=== PATIENT | male | born 1965 | race Caucasian/White ===

== ENCOUNTER 2016-11-18 07:59 | Day surgery (SDC) | payer BC, OTHER ==
[2016-11-13 14:40] VITALS: BMI 29.0
[~2016-11-18 07:59] MED LIST: LACTATED RINGERS 1,000 ML IV SCH
[2016-11-18 08:20] VITALS: TEMP 97.6
[2016-11-18] MEDS ORDERED: LIDOCAINE 1% 20 ML VIAL (10MG/ML) FOR IV START INTRADERMA ONE (08:20)
[2016-11-18] MEDS ORDERED: PROPOFOL 10 MG/ML 20 ML VIAL IV ONE (08:44)
[2016-11-18] MEDS ORDERED: GLYCOPYRROLATE 0.2 MG/ML 2 ML VIAL ONE (08:44)
[2016-11-18] MEDS ORDERED: LIDOCAINE 1% INJ 10MG/ML (20 ML MDV) ONE (08:44)
--- NOTE | 2016-11-18 08:53 | P.GSHP ---
History of Present Illness H&P Date: 11/18/16 Chief Complaint: History of colonic polyps This 51-year-old male who is referred from Dr. taveras. Patient rents today for colonoscopy. He is at a previous history of colon polyps. His last colonoscopy was 3 or 4 years ago. - Constitutional Constitutional: Reports as per HPI Past Medical History Past Medical History: GERD/Reflux, Hyperlipidemia, Prostate Disorder Additional Past Medical History / Comment(s): hx polyps History of Any Multi-Drug Resistant Organisms: None Reported Past Surgical History: Orthopedic Surgery Additional Past Surgical History / Comment(s): RT ELBOW, ARM, FELL OUT OF A DEER STAND 2012 Past Anesthesia/Blood Transfusion Reactions: Previous Problems w/ Anesthesia Additional Past Anesthesia/Blood Transfusion Reaction / Comment(s): HAD BEHAVIOR CHANGE POST ARM SX "SWEARING AND MAD" Past Psychological History: No Psychological Hx Reported Smoking Status: Current every day smoker Past Alcohol Use History: None Reported Additional Past Alcohol Use History / Comment(s): SMOKES 1/4-1/2 PPD SINCE 1981 Past Drug Use History: None Reported - Past Family History Mother Family Medical History: No Reported History Medications and Allergies Home Medications Medication Instructions Recorded Confirmed Type Ergocalciferol [Vitamin D2 50,000 unit PO Q7D 08/03/14 11/18/16 History (YFN)] Fenofibrate [Tricor] 160 mg PO HS 08/03/14 11/18/16 History Fish Oil/Dha/Epa [Fish Oil 1,200 1 each PO HS 08/03/14 11/18/16 History mg Fish Oil] Ranitidine HCl [Zantac] 300 mg PO HS 08/03/14 11/18/16 History Simvastatin [Zocor] 20 mg PO HS 08/03/14 11/18/16 History Acetaminophen [Tylenol Arthritis] 650 mg PO Q4H PRN 11/13/16 11/18/16 History Finasteride [Proscar] 5 mg PO DAILY 11/13/16 11/18/16 History Allergies Allergy/AdvReac Type Severity Reaction Status Date / Time No Known Allergies Allergy Verified 11/18/16 08:11 Surgical - Exam Vital Signs Temp Pulse Resp BP Pulse Ox 97.6 F 58 L 18 131/79 95 11/18/16 08:18 11/18/16 08:18 11/18/16 08:18 11/18/16 08:18 11/18/16 08:18 - General well developed, no distress - Eyes PERRL - ENT normal pinna - Neck no masses - Respiratory normal expansion - Cardiovascular Rhythm: regular - Abdomen Abdomen: soft Assessment and Plan Plan: We'll perform colonoscopy.
--- NOTE | 2016-11-18 09:03 | P.OP ---
Date of Procedure: 11/18/16 Preoperative Diagnosis: History of colon polyps Postoperative Diagnosis: Mild diverticulosis Procedure(s) Performed: Colonoscopy Anesthesia: MAC Surgeon: Almas Hendricks Pathology: none sent Condition: stable Disposition: PACU Description of Procedure: The patient's placed on the endoscopy table in the lateral position. He received IV sedation. Digital rectal exam was performed which revealed no abnormalities. The prostate was symmetric without nodules. The flexible colonoscope was then placed throughout the entire colon. The ileocecal valve was visualized. The cecum, ascending and transverse colon appeared normal. In the descending; there was a few scattered diverticula. Scope was then brought back the rectum and this appeared normal. Scope was withdrawn for patient.
[2016-11-18 09:34] VITALS: BP 123/78; PULSE 58; RESP 16
== END 2016-11-18 09:52 | disposition home or self-care (01) ==
LOC: ORWHC2ENDO 07:59
PROVIDERS: ATTEND Surgery
DX: Z12.11 Encounter for screening for malignant neoplasm of colon (principal); Z86.010 Personal history of colon polyps; K57.30 Diverticulosis of large intestine without perforation or abscess without bleeding; E78.5 Hyperlipidemia, unspecified; F17.200 Nicotine dependence, unspecified, uncomplicated; N40.0 Benign prostatic hyperplasia without lower urinary tract symptoms; K21.9 Gastro-esophageal reflux disease without esophagitis; Z79.899 Other long term (current) drug therapy
CPT/HCPCS: J2001; J2704; G0105; 45378

== ENCOUNTER → 2021-03-06 | Outpatient (CLI) | payer BC, OTHER ==
[2021-03-06 12:18] LABS: African American GFR (CKD) >90 (>60 ml/min/1.73 sqM); Blood Urea Nitrogen 15 mg/dL (9-20); Non-African American GFR(CKD) 87 (>60 ml/min/1.73 sqM)
--- NOTE | 2021-03-06 15:01 | CT ---
EXAMINATION TYPE: CT abdomen pelvis w con DATE OF EXAM: 03/06/2021 COMPARISON: INDICATION: prostate CA DLP: 1250.7 mGycm, Automated exposure control for dose reduction was used. CONTRAST: 100 mL of Isovue 300. Study performed with Oral Contrast TECHNIQUE: Axial images were obtained from above the diaphragm to the pubic rami in the axial plane a t 5 mm thick sections. Reconstructed images are reviewed on the computer in the coronal plane. FINDINGS: Limited CT sections are obtained the lung bases. The lung bases are clear. CT ABDOMEN: Liver: Normal Spleen: Normal Pancreas: Normal Adrenal glands: The adrenal glands are normal. 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 No masses are evident. No hydro nephrosis is present. No cysts are present. Delayed images were obtained through the kidneys. Aorta: Vascular calcification is within the aorta. Inferior vena cava: Normal. CT PELVIS: Proximal small bowel loops lack oral contrast limits evaluation. Loops of bowel distended with oral c ontrast normal. Osseous structures: No suspicious sclerotic or lytic lesions. Urinary bladder: Normal GENITOURINARY: Prostate is not identified. Correlate with the surgical history. IMPRESSIONS: 1. No acute abdomen abnormality. 2. No suspicious changes to suggest metastatic prostate cancer
--- NOTE | 2021-03-06 15:30 | NM ---
EXAMINATION TYPE: NM bone scan whole body DATE OF EXAM: 03/06/2021 COMPARISON: NONE HISTORY: Prostate cancer Delayed whole-body scanning was performed following the injection of 22.2 mCi Tc 99m MDP. Images wer e acquired 3 hours post injection. FINDINGS: There is a small focus of hyperintense radiotracer accumulation along the medial superior right orbit . Superior solitary. Posttraumatic change could be considered. Solitary metastasis would be unusual. There is some mild uptake along the posterior left L4-5 region may be related to degenerative change. Mild uptake within the bilateral knees and ankles is compatible with degenerative type change. IMPRESSION: 1. Solitary focus of radiotracer within the right upper inner orbital region consider posttraumatic c hange. Solitary metastasis. 2. Remaining radiotracer distribution is more compatible with degenerative type joint changes. Some d egenerative changes may be present at the posterior left L4-5 level.
== END | disposition home or self-care (01) ==
LOC: RADNMMAIN 11:21
PROVIDERS: ATTEND Internal Medicine Hematology & Oncology
DX: C61 Malignant neoplasm of prostate (principal)
CPT/HCPCS: 82565; 84520; 74177; 78306; 36415; A9503; Q9967

== ENCOUNTER 2022-02-21 08:53 | Day surgery (SDC) | payer BC, OTHER ==
[2022-02-19 09:24] VITALS: BMI 32.3
[2022-02-21] MEDS: LACTATED RINGERS 1,000 ML IV SCH ×2 (09:06→09:43)
[2022-02-21 09:09] VITALS: TEMP 97.9
[2022-02-21] MEDS ORDERED: PROPOFOL 10 MG/ML 20 ML VIAL IV ONE (09:39)
--- NOTE | 2022-02-21 09:43 | P.GSHP ---
History of Present Illness H&P Date: 02/21/22 Chief Complaint: History of colon polyps This a 56-year-old male presents today for colonoscopy. Patient has history of colon polyps. His last colonoscopy was over 5 years ago. Past Medical History Past Medical History: Cancer, GERD/Reflux, Prostate Disorder Additional Past Medical History / Comment(s): hx polyps, prostate cancer, History of Any Multi-Drug Resistant Organisms: None Reported Past Surgical History: Orthopedic Surgery, Prostate Surgery, Tonsillectomy Additional Past Surgical History / Comment(s): RT ELBOW/ARM-FELL OUT OF A DEER STAND 2012 Past Anesthesia/Blood Transfusion Reactions: Previous Problems w/ Anesthesia Additional Past Anesthesia/Blood Transfusion Reaction / Comment(s): HAD BEHAVIOR CHANGE POST ARM SX "SWEARING AND MAD" Smoking Status: Current every day smoker - Past Family History Mother Family Medical History: No Reported History Medications and Allergies Home Medications Medication Instructions Recorded Confirmed Type Acetaminophen [Tylenol Arthritis] 650 mg PO Q4H PRN 11/13/16 02/21/22 History Allergies Allergy/AdvReac Type Severity Reaction Status Date / Time No Known Allergies Allergy Verified 02/21/22 09:02 Surgical - Exam Vital Signs Temp Pulse Resp BP Pulse Ox 97.9 F 62 18 118/78 98 02/21/22 09:08 02/21/22 09:08 02/21/22 09:08 02/21/22 09:08 02/21/22 09:08 - General well developed, well nourished, no distress - Eyes PERRL - ENT normal pinna - Neck no masses - Respiratory normal expansion - Cardiovascular Rhythm: regular - Abdomen Abdomen: soft, non tender Assessment and Plan Assessment: History of colon polyps. We'll perform colonoscopy.
--- NOTE | 2022-02-21 09:55 | P.OP ---
Date of Procedure: 02/21/22 Preoperative Diagnosis: History of colon polyps Postoperative Diagnosis: Mild diverticulosis Procedure(s) Performed: Colonoscopy Anesthesia: MAC Surgeon: Almas Hendricks Pathology: none sent Condition: stable Disposition: PACU Description of Procedure: Patient's placed on the endoscopy table in the lateral position. He received IV sedation. Digital rectal exam was performed. The prostate was symmetrical without nodules. This revealed no abnormalities. The flexible colonoscope was then placed patient anus and passed throughout the entire colon. The ileocecal valve was visualized. The cecum, ascending and transverse colon appeared normal. In the descending and sigmoid colon there was mild diverticular changes. The scope was then brought back the rectum and this appeared normal. Scope withdrawn for patient.
[2022-02-21 10:02] VITALS: RESP 16
[2022-02-21 10:11] VITALS: BP 112/77; PULSE 60
== END 2022-02-21 11:20 | disposition home or self-care (01) ==
LOC: ORWHC2ENDO 08:53
PROVIDERS: ATTEND Surgery
DX: K57.30 Diverticulosis of large intestine without perforation or abscess without bleeding (principal); Z86.010 Personal history of colon polyps; K21.9 Gastro-esophageal reflux disease without esophagitis; Z85.46 Personal history of malignant neoplasm of prostate; F17.200 Nicotine dependence, unspecified, uncomplicated
CPT/HCPCS: 45378; J2704

== ENCOUNTER 2023-06-15 13:00 | Inpatient (IN) | payer BC, OTHER ==
[2023-06-15] MEDS ORDERED: NITROGLYCERIN SL TABS 0.4 MG TAB SUBLINGUAL STA (13:31)
--- NOTE | 2023-06-15 13:38 | ED ---
General Adult HPI - General Chief complaint: Chest Pain Stated complaint: Chest Pain Time Seen by Provider: 06/15/23 13:18 Source: patient Mode of arrival: wheelchair Limitations: no limitations - History of Present Illness Initial comments: Dictation was produced using [employer] dictation software. please excuse any grammatical, word or spelling errors. Chief Complaint: 58-year-old male presents emergency Department with 1 day of chest pain History of Present Illness: Is a 58-year-old male he has past medical history tobacco use. Denies any history of hypertension or diabetes. Patient states that since yesterday he's been having some chest pressure. Localizes the pain to the substernal area. Radiates to his right shoulder. He reports it is associated with diaphoresis and nausea. Patient denies any family history of heart attacks. States his pain as a 6 out of 10. Patient has no history of cardiac disease. The ROS documented in this emergency department record has been reviewed and confirmed by me. Those systems with pertinent positive or negative responses have been documented in the HPI. All other systems are other negative and/or noncontributory. - Related Data Home Medications Medication Instructions Recorded Confirmed Acetaminophen [Tylenol Arthritis] 650 mg PO Q4H PRN 11/13/16 02/21/22 Allergies Allergy/AdvReac Type Severity Reaction Status Date / Time No Known Allergies Allergy Verified 06/15/23 13:02 Review of Systems ROS Statement: Those systems with pertinent positive or pertinent negative responses have been documented in the HPI. ROS Other: All systems not noted in ROS Statement are negative. Past Medical History Past Medical History: Cancer, GERD/Reflux, Prostate Disorder Additional Past Medical History / Comment(s): hx polyps, prostate cancer, History of Any Multi-Drug Resistant Organisms: None Reported Past Surgical History: Orthopedic Surgery, Prostate Surgery, Tonsillectomy Additional Past Surgical History / Comment(s): RT ELBOW/ARM-FELL OUT OF A DEER STAND 2012 Past Anesthesia/Blood Transfusion Reactions: Previous Problems w/ Anesthesia Additional Past Anesthesia/Blood Transfusion Reaction / Comment(s): HAD BEHAVIOR CHANGE POST ARM SX "SWEARING AND MAD" Past Psychological History: No Psychological Hx Reported Smoking Status: Current every day smoker - Past Family History Mother Family Medical History: No Reported History General Exam - General Exam Comments Initial Comments: PHYSICAL EXAM: General Impression: Alert and oriented x3, not in acute distress HEENT: Normocephalic atraumatic, extra-ocular movements intact, pupils equal and reactive to light bilaterally, mucous membranes moist. Cardiovascular: Heart regular rate and rhythm Chest: Able to complete full sentences, no retractions, no tachypnea Abdomen: abdomen soft, non-tender, non-distended, no organomegaly Musculoskeletal: Pulses present and equal in all extremities, no peripheral edema Motor: no focal deficits noted Neurological: CN II-XII grossly intact, no focal motor or sensory deficits noted Skin: Intact with no visualized rashes Psych: Normal affect and mood Limitations: no limitations Course Vital Signs 06/15/23 06/15/23 13:02 13:30 Temperature 98 F Pulse Rate 61 58 L Respiratory 16 8 L Rate Blood Pressure 136/78 128/81 O2 Sat by Pulse 97 Oximetry - Reevaluation(s) Reevaluation #1: 06/15/23 13:38 My EKG interpretation: Ventricular rate 55, sinus bradycardia,. Interval 199, QRS 105, QTC of 432.. No VT prolongation, no QTC prolongation. No old EKG for comparison. T-wave inversions in 3 and aVF with no obvious reciprocal changes.. Overall, this EKG is unremarkable Reevaluation #2: 06/15/23 15:[address] Preciado at 3:[address] Rodriguez requested patient be placed on nitroglycerin infusion titrated for pain. He also requests a repeat troponin EKG Findings - EKG Comments: EKG Findings:: My EKG interpretation: Ventricular rate 55, sinus bradycardia,. Interval 199, QRS 105, QTC of 432.. No VT prolongation, no QTC prolongation. No old EKG for comparison. T-wave inversions in 3 and aVF with no obvious reciprocal changes.. Overall, this EKG is unremarkable Medical Decision Making - Medical Decision Making Was pt. sent in by a medical professional or institution (, PA, FINISHING TUNNEL OPERATOR, urgent care, hospital, or halfway...) When possible be specific @ -No Did you speak to anyone other than the patient for history (EMS, parent, family, police, friend...)? What history was obtained from this source @ -some history obtained from at the bedside of Did you review nursing and triage notes (agree or disagree)? Why? @ -I reviewed and agree with nursing and triage notes Were old charts reviewed (outside hosp., previous admission, EMS record, old EKG, old radiological studies, urgent care reports/EKG's, halfway records)? Report findings @ -No old charts were reviewed Differential Diagnosis (chest pain, altered mental status, abdominal pain women, abdominal pain men, vaginal bleeding, musculoskeletal, weakness, fever, dyspnea, syncope, headache, dizziness, GI bleed, back pain, seizure, CVA, palpatations, mental health)? @ -Differential Chest Pain: Stable Angina, Unstable Angina, STEMI, NSTEMI Aortic Dissection, Pneumothorax, Musculoskeletal, Esophageal Spasm GERD, Cholecystitis, Pancreatitis, Zoster, this is not meant to be an all-inclusive list. EKG interpreted by me (3pts min.). @ -See above. CT EKGs were performed with no dynamic changes. X-rays interpreted by me (1pt min.). @ -None done CT interpreted by me (1pt min.). @ -None done U/S interpreted by me (1pt. min.). @ -None done What testing was considered but not performed or refused? (CT, X-rays, U/S, labs)? Why? @ -None What meds were considered but not given or refused? Why? @ -None Did you discuss the management of the patient with other professionals (professionals i.e. , PA, FINISHING TUNNEL OPERATOR, lab, RT, psych nurse, school social worker, publications inspector, teacher, special assets officer, case maker)? Give summary @ -Case discussed with cardiology as described above Was smoking cessation discussed for >3mins.? @ -No Was critical care preformed (if so, how long)? @ -yes, 33 minutes Were there social determinants of health that impacted care today? How? (Homelessness, low income, unemployed, alcoholism, drug addiction, transportation, low edu. Level, literacy, decrease access to med. care, group home, rehab)? @ -No Was there de-escalation of care discussed even if they declined (Discuss DNR or withdrawal of care, Hospice)? DNR status @ -No What co-morbidities impacted this encounter? (DM, HTN, Smoking, COPD, CAD, Cancer, CVA, ARF, Chemo, Hep., AIDS, mental health diagnosis, sleep apnea, morbid obesity)? @ -None Was patient admitted / discharged? Hospital course, mention meds given and route, prescriptions, significant lab abnormalities, going to OR and other pertinent info. @ -58-year-old male presents with ACS-type symptoms. Vital signs are stable. EKG suspicious for ischemic changes. No infarction. Laboratory evaluation obtained. CBC, coag panel metabolic panel within except limits. Troponin elevated at 1.460. Patient given nitroglycerin with resolution of his symptoms. He did report slight increase of his symptoms. Patient started on nitro drip. He is given aspirin and started on heparin. Case discussed with cardiology as described above. Patient admitted to [facility] Undiagnosed new problem with uncertain prognosis? @ -No Drug Therapy requiring intensive monitoring for toxicity (Heparin, Nitro, Insulin, Cardizem)? @ -No Were any procedures done? @ -No Diagnosis/symptom? Acute, or Chronic, or Acute on Chronic? Uncomplicated (without systemic symptoms) or Complicated (systemic symptoms)? @ -NSTEMI Side effects of treatment? @ -No Exacerbation, Progression, or Severe Exacerbation? @ -No Poses a threat to life or bodily function? How? (Chest pain, USA, AR, pneumonia, PE, COPD, DKA, ARF, appy, cholecystitis, CVA, Diverticulitis, Homicidal, Suicidal, threat to staff... and all critical care pts) @ -yes - Lab Data Result diagrams: 06/15/23 13:35 06/15/23 13:35 Lab Results 06/15/23 06/15/23 06/15/23 Range/Units 13:35 13:35 13:35 WBC 11.9 H (3.8-10.6) k/uL RBC 4.98 (4.30-5.90) m/uL Hgb 15.4 (13.0-17.5) gm/dL Hct 45.4 (39.0-53.0) % MCV 91.1 (80.0-100.0) fL MCH 30.9 (25.0-35.0) pg MCHC 33.9 (31.0-37.0) g/dL RDW 12.6 (11.5-15.5) % Plt Count 356 (150-450) k/uL MPV 7.4 Neutrophils % 86 % Lymphocytes % 10 % Monocytes % 4 % Eosinophils % 0 % Basophils % 0 % Neutrophils # 10.2 H (1.3-7.7) k/uL Lymphocytes # 1.2 (1.0-4.8) k/uL Monocytes # 0.4 (0-1.0) k/uL Eosinophils # 0.0 (0-0.7) k/uL Basophils # 0.0 (0-0.2) k/uL PT 10.3 (10.0-12.5) sec INR 0.9 (<1.2) APTT 24.5 (22.0-30.0) sec Sodium 134 L (137-145) mmol/L Potassium 4.6 (3.5-5.1) mmol/L Chloride 103 (98-107) mmol/L Carbon Dioxide 22 (22-30) mmol/L Anion Gap 9 mmol/L BUN 13 (9-20) mg/dL Creatinine 0.74 (0.66-1.25) mg/dL Est GFR (CKD-EPI)AfAm >90 (>60 ml/min/1.73 sqM) Est GFR (CKD-EPI)NonAf >90 (>60 ml/min/1.73 sqM) Glucose 114 H (74-99) mg/dL Calcium 9.5 (8.4-10.2) mg/dL Magnesium 1.7 (1.6-2.3) mg/dL Total Bilirubin 0.9 (0.2-1.3) mg/dL AST 49 (17-59) U/L ALT 35 (4-49) U/L Alkaline Phosphatase 98 (38-126) U/L Troponin I (0.000-0.034) ng/mL Total Protein 6.9 (6.3-8.2) g/dL Albumin 4.2 (3.5-5.0) g/dL 06/15/23 Range/Units 13:35 WBC (3.8-10.6) k/uL RBC (4.30-5.90) m/uL Hgb (13.0-17.5) gm/dL Hct (39.0-53.0) % MCV (80.0-100.0) fL MCH (25.0-35.0) pg MCHC (31.0-37.0) g/dL RDW (11.5-15.5) % Plt Count (150-450) k/uL MPV Neutrophils % % Lymphocytes % % Monocytes % % Eosinophils % % Basophils % % Neutrophils # (1.3-7.7) k/uL Lymphocytes # (1.0-4.8) k/uL Monocytes # (0-1.0) k/uL Eosinophils # (0-0.7) k/uL Basophils # (0-0.2) k/uL PT (10.0-12.5) sec INR (<1.2) APTT (22.0-30.0) sec Sodium (137-145) mmol/L Potassium (3.5-5.1) mmol/L Chloride (98-107) mmol/L Carbon Dioxide (22-30) mmol/L Anion Gap mmol/L BUN (9-20) mg/dL Creatinine (0.66-1.25) mg/dL Est GFR (CKD-EPI)AfAm (>60 ml/min/1.73 sqM) Est GFR (CKD-EPI)NonAf (>60 ml/min/1.73 sqM) Glucose (74-99) mg/dL Calcium (8.4-10.2) mg/dL Magnesium (1.6-2.3) mg/dL Total Bilirubin (0.2-1.3) mg/dL AST (17-59) U/L ALT (4-49) U/L Alkaline Phosphatase (38-126) U/L Troponin I 1.460 H* (0.000-0.034) ng/mL Total Protein (6.3-8.2) g/dL Albumin (3.5-5.0) g/dL Disposition Clinical Impression: NSTEMI (non-ST elevated myocardial infarction) Disposition: ADMITTED IP TO THIS HOSP Condition: Critical Referrals: Leslie Rutledge DO [Primary Care Provider] - 1-2 days Decision Time: 15:24
--- NOTE | 2023-06-15 13:56 | XR ---
EXAMINATION TYPE: XR chest 2V DATE OF EXAM: 06/15/2023 1:51 PM CLINICAL INDICATION:Male, 58 years old with history of Chest Pain; [facility] COMPARISON: None. TECHNIQUE: XR chest 2V Frontal and lateral views of the chest. FINDINGS: Lungs/Pleura: Subsegmental atelectasis is noted in the lung bases. No evidence of pleural effusion or pneumothorax. Pulmonary vascularity: Unremarkable. Heart/mediastinum: Cardiomediastinal silhouette is unremarkable. Musculoskeletal: No acute osseous pathology. IMPRESSION: No acute cardiopulmonary disease/process.
[2023-06-15 14:02] LABS: Basophils % (A) 0 %; Eosinophils % (A) 0 %; HCT 45.4 % (39.0-53.0); HGB 15.4 gm/dL (13.0-17.5); Lymphocytes # (A) 1.2 k/uL (1.0-4.8); Lymphocytes % (A) 10 %; MCH 30.9 pg (25.0-35.0); MCHC 33.9 g/dL (31.0-37.0); MCV 91.1 fL (80.0-100.0); Mean Platelet Volume 7.4; Monocytes # (A) 0.4 k/uL (0-1.0); Monocytes % (A) 4 %; Neutrophils # (A) 10.2 k/uL (1.3-7.7); Neutrophils % (A) 86 %; Platelet Count 356 k/uL (150-450); RBC 4.98 m/uL (4.30-5.90); RDW 12.6 % (11.5-15.5); WBC 11.9 k/uL (3.8-10.6)
[2023-06-15 14:07] LABS: ALT 35 U/L (4-49); AST 49 U/L (17-59); African American GFR (CKD) >90 (>60 ml/min/1.73 sqM); Albumin 4.2 g/dL (3.5-5.0); Alkaline Phosphatase 98 U/L (38-126); Anion Gap 9 mmol/L; Blood Urea Nitrogen 13 mg/dL (9-20); Calcium 9.5 mg/dL (8.4-10.2); Carbon Dioxide 22 mmol/L (22-30); Chloride 103 mmol/L (98-107); Glucose 114 mg/dL (74-99); Magnesium 1.7 mg/dL (1.6-2.3); Non-African American GFR(CKD) >90 (>60 ml/min/1.73 sqM); Potassium 4.6 mmol/L (3.5-5.1); Sodium 134 mmol/L (137-145); Total Bilirubin 0.9 mg/dL (0.2-1.3); Total Protein 6.9 g/dL (6.3-8.2)
[2023-06-15 14:23] LABS: INR 0.9 (<1.2); Partial Thromboplastin Time 24.5 sec (22.0-30.0); Prothrombin Time 10.3 sec (10.0-12.5)
[2023-06-15] MEDS ORDERED: HEPARIN SODIUM 1,000 UN/ML (10ML VL) IV ONE (14:23)
[2023-06-15] MEDS ORDERED: HEPARIN SODIUM 1,000 UN/ML (10ML VL) IV PRN (14:23)
[2023-06-15] MEDS ORDERED: NITROGLYCERIN OINT 1 INCH/GM PACKET TOPICAL STA (14:29)
[2023-06-15] MEDS ORDERED: HEPARIN SOD,PORK IN 0.45% NACL 25,000 UNIT in 0.45% NACL 1 250ML.BAG IV SCH (14:30)
[2023-06-15] MEDS ORDERED: ASPIRIN 81 MG PO STA (14:38)
[2023-06-15] MEDS ORDERED: NITROGLYCERIN-D5W PMX 50 MG in DEXTROSE/WATER 1 250ML.BAG IV ONE (15:18)
[2023-06-15] MEDS ORDERED: VERAPAMIL 2.5 MG/ML 2 ML AMP ONE (16:52)
[2023-06-15] MEDS ORDERED: LIDOCAINE 1% INJ 10MG/ML (20 ML MDV) ONE (16:52)
[2023-06-15] MEDS ORDERED: SODIUM CHLORIDE 0.9% 1,000 ML IV ONE (16:56)
[2023-06-15] MEDS ORDERED: IV FLUID CONTINUATION 900 ML IV ONE (16:56)
[2023-06-15] MEDS ORDERED: HEPARIN SODIUM 1,000 UN/ML (10ML VL) ONE (17:05)
[2023-06-15] MEDS ORDERED: fentaNYL (PF) 50 MCG/ML 2 ML AMP ONE (17:05)
--- NOTE | 2023-06-15 17:09 | P.CRDCN ---
History of Present Illness History of present illness: HISTORY OF PRESENTING ILLNESS This is a pleasant 58-year-old with past medical history significant for tobacco abuse and prostate cancer in remission. He has never had any cardiac history in the past. 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 He did have a brief episode of mild chest pain approximately 3 days ago and went away however when he was hunting and he started to feel substernal chest pressure and pain radiating in his job with associated diaphoresis and shortness breath and therefore decided to go to the emergency department. EKG shows sinus rhythm with ST depressions in the inferior and lateral leads. He has never had anything similar to this in the past. He does smoke, no alcohol, no illicit drugs, family history of mother with recent stent 1 month ago. He was given nitroglycerin with some improvement and placed on nitro drip however chest pain still had a 2 out of 10. Blood work shows troponin 1.4, 3.9 REVIEW OF SYSTEMS At the time of my exam: CONSTITUTIONAL: Denies fever or chills. CARDIOVASCULAR: +chest pain, +shortness of breath, no orthopnea, PND or palpitations. RESPIRATORY: Denies cough. GASTROINTESTINAL: Denies abdominal pain, diarrhea, constipation, nausea or vomiting. MUSCULOSKELETAL: Denies myalgias. NEUROLOGIC: Denies numbness, tingling or weakness. ENDOCRINE: Denies fatigue, weight change, polydipsia or polyurina. GENITOURINARY: Denies burning, hematuria or urgency with micturation. HEMATOLOGIC: Denies history of anemia or bleeding. PHYSICAL EXAMINATION Vital signs reviewed. CONSTITUTIONAL: No apparent distress. HEENT: Head is normocephalic. Pupils are equal, round. Sclerae anicteric. Mucous membranes of the mouth are moist. No JVD. No carotid bruit. CHEST EXAMINATION: Lungs are clear to auscultation. No chest wall tenderness is noted on palpation or with deep breathing. HEART EXAMINATION: Regular rate and rhythm. S1, S2 heard. No murmurs, gallops or rub. ABDOMEN: Soft, nontender. Positive bowel sounds. EXTREMITIES: 2+ peripheral pulses, no lower extremity edema and no calf tenderness. NEUROLOGIC EXAMINATION: Patient is awake, alert and oriented x3. ASSESSMENT 1. Non-STEMI with ongoing chest pain 2. Tobacco abuse 3. Family history of CAD PLAN Patient's symptoms typical and non-STEMI with ongoing chest pain. Therefore discussed urgent heart catheterization and patient agreeable. Aspirin, heparin, check 2-D echo. Further recommendations to follow. Tobacco cessation. Past Medical History Past Medical History: Cancer, GERD/Reflux, Prostate Disorder Additional Past Medical History / Comment(s): hx polyps, prostate cancer, History of Any Multi-Drug Resistant Organisms: None Reported Past Surgical History: Orthopedic Surgery, Prostate Surgery, Tonsillectomy Additional Past Surgical History / Comment(s): RT ELBOW/ARM-FELL OUT OF A DEER STAND 2012 Past Anesthesia/Blood Transfusion Reactions: Previous Problems w/ Anesthesia Additional Past Anesthesia/Blood Transfusion Reaction / Comment(s): HAD BEHAVIOR CHANGE POST ARM SX "SWEARING AND MAD" Past Psychological History: No Psychological Hx Reported Smoking Status: Current every day smoker - Past Family History Mother Family Medical History: No Reported History Medications and Allergies Home Medications Medication Instructions Recorded Confirmed Type Acetaminophen [Tylenol Arthritis] 650 mg PO Q4H PRN 11/13/16 02/21/22 History Allergies Allergy/AdvReac Type Severity Reaction Status Date / Time No Known Allergies Allergy Verified 06/15/23 13:02 Physical Exam Vitals: Vital Signs Temp Pulse Pulse Resp BP BP Pulse Ox 06/15/23 16:35 52 L 18 114/52 98 06/15/23 16:13 57 L 16 114/72 99 06/15/23 15:30 52 L 16 119/72 99 06/15/23 15:00 50 L 10 L 112/70 99 06/15/23 14:30 56 L 12 109/72 98 06/15/23 14:00 51 L 12 129/76 96 06/15/23 13:30 58 L 8 L 128/81 06/15/23 13:02 98 F 61 16 136/78 97 Intake and Output 06/15/23 06/15/23 06/15/23 06:59 14:59 22:59 Output Total 425 Balance -425 Output: Urine 425 Other: Weight 86.183 kg Results 06/15/23 13:35 06/15/23 13:35 Cardiac Enzymes 06/15/23 06/15/23 06/15/23 Range/Units 13:35 13:35 15:27 AST 49 (17-59) U/L Troponin I 1.460 H* 3.960 H* (0.000-0.034) ng/mL Coagulation 06/15/23 Range/Units 13:35 PT 10.3 (10.0-12.5) sec APTT 24.5 (22.0-30.0) sec CBC 06/15/23 Range/Units 13:35 WBC 11.9 H (3.8-10.6) k/uL RBC 4.98 (4.30-5.90) m/uL Hgb 15.4 (13.0-17.5) gm/dL Hct 45.4 (39.0-53.0) % Plt Count 356 (150-450) k/uL Comprehensive Metabolic Panel 06/15/23 Range/Units 13:35 Sodium 134 L (137-145) mmol/L Potassium 4.6 (3.5-5.1) mmol/L Chloride 103 (98-107) mmol/L Carbon Dioxide 22 (22-30) mmol/L BUN 13 (9-20) mg/dL Creatinine 0.74 (0.66-1.25) mg/dL Glucose 114 H (74-99) mg/dL Calcium 9.5 (8.4-10.2) mg/dL AST 49 (17-59) U/L ALT 35 (4-49) U/L Alkaline Phosphatase 98 (38-126) U/L Total Protein 6.9 (6.3-8.2) g/dL Albumin 4.2 (3.5-5.0) g/dL Current Medications Generic Name Dose Route Start Last Admin Trade Name Freq PRN Reason Stop Dose Admin Aspirin 325 mg 06/16/23 09:00 Aspirin 325 Mg Tab PO DAILY [facility] Heparin Sodium (Porcine) 0 unit 06/15/23 14:23 Heparin Sodium 1,000 Un/Ml (10ml Vl) IV PER PROTOCOL PRN Low PTT Protocol Heparin Sodium/Sodium Chloride 250 mls @ 10 mls/hr 06/15/23 14:30 06/15/23 14:43 25,000 unit/ Sodium Chloride IV 11.603 units/kg/hr .Q24H NEENA 10 mls/hr Administration Protocol 11.603 UNITS/KG/HR Nitroglycerin/Dextrose 50 mg/ 250 mls @ 1.5 mls/hr 06/15/23 15:18 06/15/23 15:42 IV Solution IV 06/16/23 15:17 5 mcg/min .Q24H ONE 1.5 mls/hr Administration Protocol 5 MCG/MIN Intake and Output 06/15/23 06/15/23 06/15/23 06:59 14:59 22:59 Output Total 425 Balance -425 Output: Urine 425 Other: Weight 86.183 kg Patient Weight 06/16/23 06:59 Weight 86.183 kg 06/15/23 13:35 06/15/23 13:35
[2023-06-15] MEDS ORDERED: fentaNYL (PF) 50 MCG/1 ML VIAL IVP ONE (17:12)
[2023-06-15] MEDS ORDERED: MIDAZOLAM 2 MG/2 ML VIAL IVP ONE (17:12)
[2023-06-15] MEDS ORDERED: LIDOCAINE 1% INJ 10MG/ML (20 ML MDV) SQ ONE (17:13)
[2023-06-15] MEDS ORDERED: VERAPAMIL SYRINGE (5 MG/10 ML) INTRAARTER ONE (17:15)
[2023-06-15] MEDS: HEPARIN SODIUM 1,000 UN/ML (10ML VL) IV ONE ×4 (17:18→17:49)
[2023-06-15] MEDS ORDERED: TICAGRELOR 90 MG TAB ONE (17:19)
[2023-06-15] MEDS ORDERED: TICAGRELOR 90 MG TAB PO ONE (17:25)
[2023-06-15] MEDS: NITROGLYCERIN 1000MCG/10ML SYRINGE INTRACORON ONE ×2 (17:35→17:41)
[2023-06-15] MEDS ORDERED: IOPAMIDOL-370 200ML BTL INJ ONE (17:47)
[2023-06-15] MEDS ORDERED: ZOLPIDEM 5 MG TAB PO PRN (17:57)
[2023-06-15] MEDS ORDERED: ATROPINE SULFATE 0.1 MG/ML 10ML SYRINGE IV PRN (17:57)
[2023-06-15] MEDS ORDERED: RX INFO: IV CONTRAST WAS GIVEN 1 EACH MISC MISCELLANE PRN (17:57)
[2023-06-15] MEDS ORDERED: MAG HYDROX/AL HYDROX/SIMETH 30 ML CUP PO PRN (17:57)
--- NOTE | 2023-06-15 17:57 | P.PRCINT ---
Percutaneous Coronary Int. - Percutaneous Coronary Intervention Percutaneous Coronary Intervention: PROCEDURES PERFORMED: Left heart catheterization, bilateral coronary angiography, ultrasound guided arterial access, Penumbra aspiration thrombectomy RCA, PCI RCA 4.0 x 15 mm Xience RAYSA INDICATION: Non-STEMI CONSENT:I have discussed the risks, benefits and alternative therapies for the above-mentioned procedure and for both sedation/analgesia as well as necessary blood product administration, if indicated, as they pertain to this patient. The patient has indicated understanding and acceptance of the risks and procedures discussed. PROCEDURE: After the risks, benefits and alternatives of the above mentioned p rocedure explained in detail with the patient, informed consent was obtained. Patient was taken to the catheterization lab and prepped and draped in usual fashion. Ultrasound guidance was used to assess for arterial access. 1% lidocaine was used to anesthetize the right radial artery. A 6-Georgian sheath was placed in the right radial artery using modified Seldinger technique and ultrasound guidance. Left coronary angiography was performed with a 5-Georgian JL 3.5 catheter and right coronary angiography was performed with a 5-Georgian AR2 catheter in various views. A 5-Georgian AR2 catheter was inserted into the left ventricle and pressure measurements were obtained. The decision was made to perform PCI of the RCA. A 6-Georgian AL 0.75 guide was used to engage the RCA. A 0.014 BMW wire was advanced in the distal RCA. Given concern of heavy thrombus burden, initial penumbra aspiration thrombectomy was performed however without much improvement and thrombus. Next balloon angioplasty was performed with a 30 by 12 mm balloon. Repeat penumbra aspiration thrombectomy was performed with some thrombus noted to be removed from the penumbra catheter. An additional 0.014 BMW wire was advanced in the PDA. Next PCI was performed with a 4.0 x 15 mm Xience RAYSA in the distal RCA. Preintervention there was 100% stenosis with ETHEL 0 flow and post intervention there was 0% stenosis with ETHEL 3 flow. The wires were pulled and final angiograms were performed. The right radial sheath was removed and a TR band was placed with hemostasis achieved. The patient tolerated the procedure well. Patient was transported back to the post catheterization holding area in stable condition. Conscious Sedation: Patient was monitored under the direct supervision of myself for conscious sedation using Versed and fentanyl for a total duration of 32 minutes HEMODYNAMICS: Aorta: 104/67 LV: 102/10, LVEDP 16 SELECTIVE CORONARY ARTERIOGRAPHY: LEFT MAIN: The left main is a large caliber vessel which bifurcates into the LAD and circumflex. There is no significant stenosis. LEFT ANTERIOR DESCENDING CORONARY ARTERY: LAD is a large caliber vessel which wraps around to the apex. There are mild luminal irregularities of the LAD. There are mild left to right collaterals to the RCA LEFT CIRCUMFLEX CORONARY ARTERY: Left circumflex is a moderate caliber vessel with mild luminal irregularities of the circumflex RIGHT CORONARY ARTERY: The right coronary artery is a large caliber vessel which gives off a PDA and PLV branch and is the dominant vessel. There is 100% distal RCA stenosis. FINAL IMPRESSION: 1. Mild CAD of the left system and 100% distal RCA stenosis 2. Normal left sided filling pressures 3. Status post PCI RCA 4.0 x 15 mm Xience RAYSA PLAN: 1. Aggressive risk factor modification per most recent ACC/AHA guidelines. 2. Continued dual antiplatelets with aspirin and Brillinta for 12 months 3. Smoking cessation discussed
[2023-06-15] MEDS: TICAGRELOR 90 MG TAB PO SCH (20:09)
[2023-06-15] MEDS: ATORVASTATIN 80 MG TAB PO SCH (20:10)
[2023-06-16] MEDS ORDERED: ASPIRIN 325 MG TAB PO SCH (09:00)
[2023-06-16] MEDS: TICAGRELOR 90 MG TAB PO SCH ×2 (10:04→20:54)
[2023-06-16] MEDS: ASPIRIN 81 MG PO SCH (10:04)
[2023-06-16] MEDS: METOPROLOL SUCCINATE (ER) 25 MG TAB.ER.24H PO SCH (10:04)
[2023-06-16 11:25] LABS: Chol/HDL Ratio 4.83 Ratio; LDL Cholesterol,Calculated 96.9 mg/dL (0.0-131.0)
--- NOTE | 2023-06-16 11:35 | P.PN ---
Subjective HISTORY OF PRESENT ILLNESS: This is a pleasant 58-year-old with past medical history significant for tobacco abuse and prostate cancer in remission. He has never had any cardiac history in the past. 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 He did have a brief episode of mild chest pain approximately 3 days ago and went away however when he was hunting and he started to feel substernal chest pressure and pain radiating in his job with associated diaphoresis and shortness breath and therefore decided to go to the emergency department. EKG shows sinus rhythm with ST depressions in the inferior and lateral leads. He has never had anything similar to this in the past. He does smoke, no alcohol, no illicit drugs, family history of mother with recent stent 1 month ago. He was given nitroglycerin with some improvement and placed on nitro drip however chest pain still had a 2 out of 10. Blood work shows troponin 1.4, 3.9 06/16/2023 Patient is status post cardiac catheterization with Dr. Preciado. Cardiac catheterization revealing mild CAD of the left system and 100% distal RCA stenosis. Normal left-sided filling pressures. Patient underwent PCI of the RCA. Patient examined this morning at the bedside. Patient denies any chest pain or pressure. He denies any shortness of breath. Vital signs are stable. PHYSICAL EXAM: VITAL SIGNS: Reviewed. GENERAL: Well-developed in no acute distress. NECK: Supple. No JVD or thyromegaly LUNGS: Respirations even and unlabored. Lungs essentially clear to auscultation bilaterally. HEART: Regular rate and rhythm. S1 and S2 heard. EXTREMITIES: Normal range of motion. No clubbing or cyanosis. Peripheral pulses intact. No lower extremity edema ASSESSMENT: 1. Non-STEMI, status post PCI of RCA 2. Tobacco abuse 3. Family history of CAD PLAN: 2-D echo has been ordered. Await results. Continue dual antiplatelet therapy Continue high intensity statin Continue to monitor patient for an additional 24 hours Anticipate discharge home tomorrow Nurse practitioner note has been reviewed by physician. Signing provider agrees with the documented findings, assessment, and plan of care. Objective - Vital Signs Vital signs: Vital Signs Temp 96.4 F L 06/16/23 04:00 Pulse 55 L 06/16/23 04:00 Resp 16 06/16/23 04:00 BP 92/53 06/16/23 04:00 Pulse Ox 94 L 06/16/23 04:00 FiO2 Intake & Output 06/15/23 06/16/23 06/16/23 18:59 06:59 18:59 Intake Total 550 Output Total 425 Balance 125 Weight 86.183 kg Intake: IV 550 Output: Urine 425 Other: Voiding Method Toilet Urinal # Voids 2 - Labs CBC & Chem 7: 06/15/23 13:35 06/15/23 13:35 Labs: Abnormal Lab Results - Last 24 Hours (Table) 06/15/23 06/15/23 06/15/23 Range/Units 13:35 13:35 13:35 WBC 11.9 H (3.8-10.6) k/uL Neutrophils # 10.2 H (1.3-7.7) k/uL APTT (22.0-30.0) sec Sodium 134 L (137-145) mmol/L Glucose 114 H (74-99) mg/dL Troponin I 1.460 H* (0.000-0.034) ng/mL 06/15/23 06/15/23 06/15/23 Range/Units 15:27 18:22 21:10 WBC (3.8-10.6) k/uL Neutrophils # (1.3-7.7) k/uL APTT (22.0-30.0) sec Sodium (137-145) mmol/L Glucose (74-99) mg/dL Troponin I 3.960 H* 23.600 H* 52.700 H* (0.000-0.034) ng/mL 06/15/23 Range/Units 21:10 WBC (3.8-10.6) k/uL Neutrophils # (1.3-7.7) k/uL APTT 49.4 H (22.0-30.0) sec Sodium (137-145) mmol/L Glucose (74-99) mg/dL Troponin I (0.000-0.034) ng/mL
[2023-06-16 15:56] VITALS: BMI 30.7
[2023-06-16] MEDS: SODIUM CHLORIDE 0.9% 1,000 ML in EMPTY BAG 1 BAG IV SCH (17:23)
--- NOTE | 2023-06-16 18:55 | CA ---
Transthoracic Echo Report Name: Arsalan Russo Age: 58 Gender: M : 1965 Exam Date: 06/16/2023 09:46 Exam Location: [facility] Ht (in): 66 Wt (lb): 190 Ordering Physician: John Preciado DO ([email or web address]) Attending/Referring Phys: Landscaper Kaley Spivey RDCS Procedure CPT: Indications: re: NSTEMI Cardiac Hx: Technical Quality: Fair Contrast 1: Total Dose (mL): Contrast 2: Total Dose (mL): MEASUREMENTS (Male / Female) Normal Values 2D ECHO LV Diastolic Diameter PLAX 4.5 cm 4.2 - 5.9 / 3.9 - 5.3 cm LV Systolic Diameter PLAX 3.4 cm IVS Diastolic Thickness 1.5 cm 0.6 - 1.0 / 0.6 - 0.9 cm LVPW Diastolic Thickness 1.5 cm 0.6 - 1.0 / 0.6 - 0.9 cm LV Relative Wall Thickness 0.7 RV Internal Dim ED PLAX 3.6 cm LA Volume 47.2 cm??? 18 - 58 / 22 - 52 cm??? LA Volume Index 23.3 cm???/m??? 16 - 28 cm???/m??? M-MODE Aortic Root Diameter MM 3.6 cm LA Systolic Diameter MM 4.1 cm LA Ao Ratio MM 1.1 AV Cusp Separation MM 2.5 cm DOPPLER AV Peak Velocity 147.6 cm/s AV Peak Gradient 8.7 mmHg AV Mean Velocity 100.7 cm/s AV Mean Gradient 4.5 mmHg AV Velocity Time Integral 29.9 cm LVOT Peak Velocity 103.1 cm/s LVOT Peak Gradient 4.3 mmHg LVOT Velocity Time Integral 20.4 cm MV Area PHT 3.1 cm??? Mitral E Point Velocity 79.2 cm/s Mitral A Point Velocity 62.0 cm/s Mitral E to A Ratio 1.3 MV Deceleration Time 245.6 ms TR Peak Velocity 213.6 cm/s TR Peak Gradient 18.2 mmHg Right Ventricular Systolic Press 22.4 mmHg FINDINGS Left Ventricle Moderately increased septal wall thickness. Left ventricular cavity size normal. Left ventricular ejection fraction is estimated at 45-50 %. Inferior and inferoseptal hypokinesis Right Ventricle Mild right ventricular dilatation. Right ventricular systolic pressure within normal limits. Right Atrium Normal right atrial size. Left Atrium Normal left atrial size. Mitral Valve Structurally normal mitral valve. Mild mitral regurgitation. Aortic Valve No aortic valve stenosis or regurgitation. Tricuspid Valve Structurally normal tricuspid valve. Mild tricuspid regurgitation. Pulmonic Valve Structurally normal pulmonic valve. Pericardium No pericardial effusion. Aorta Normal size aortic root and proximal ascending aorta. CONCLUSIONS 1. Mildly impaired left ventricular systolic function with segmental wall motion abnormality 2. Mild mitral and tricuspid regurgitation Previewed by: Dr. Rena Xiao MD (Electronically Signed) Final Date: 16 June 2023 18:54
[2023-06-16] MEDS: ATORVASTATIN 80 MG TAB PO SCH (20:54)
--- NOTE | 2023-06-16 22:34 | P.HPIM ---
History of Present Illness H&P Date: 06/16/23 Chief Complaint: chest pain Arsalan Russo is a 58-year-old with past medical history significant for tobacco abuse and prostate cancer in remission who presented to the ED wirh worsening chest pain and shortness of breath. He states his symptoms initially started 3 days ago while he was hunting but went away, he subsequently started to feel substernal chest pressure and pain with associated diaphoresis and shortness breath. On presentation, EKG shows sinus rhythm with ST depressions in the inferior and lateral leads. He has never had anything similar to this in the past. He notes family history of CAD in mother. Pt taken to boat lab[facility] and underwent angiography showing 100% RCA blockage and deployment of stent. On evaluation he feeling well today, no chest pain, shortness of breath, pain around cath site. Review of Systems All systems: negative Constitutional: Denies chills, Denies fever Eyes: denies blurred vision, denies pain Ears, nose, mouth and throat: Denies headache, Denies sore throat Cardiovascular: Reports chest pain, Denies shortness of breath Respiratory: Denies cough Gastrointestinal: Denies abdominal pain, Denies diarrhea, Denies nausea, Denies vomiting Musculoskeletal: Denies myalgias Integumentary: Denies pruritus, Denies rash Neurological: Denies numbness, Denies weakness Psychiatric: Denies anxiety, Denies depression Endocrine: Denies fatigue, Denies weight change Past Medical History Past Medical History: Cancer, GERD/Reflux, Prostate Disorder Additional Past Medical History / Comment(s): hx polyps, prostate cancer, History of Any Multi-Drug Resistant Organisms: None Reported Past Surgical History: Orthopedic Surgery, Prostate Surgery, Tonsillectomy Additional Past Surgical History / Comment(s): RT ELBOW/ARM-FELL OUT OF A DEER STAND 2012 Past Anesthesia/Blood Transfusion Reactions: Previous Problems w/ Anesthesia Additional Past Anesthesia/Blood Transfusion Reaction / Comment(s): HAD BEHAVIOR CHANGE POST ARM SX "SWEARING AND MAD" Past Psychological History: No Psychological Hx Reported Smoking Status: Current every day smoker - Past Family History Mother Family Medical History: No Reported History Medications and Allergies Home Medications Medication Instructions Recorded Confirmed Type Ergocalciferol (Vitamin D2) 1,250 mcg PO DIRECTED 06/15/23 06/15/23 History [Drisdol (50,000 Iu)] Allergies Allergy/AdvReac Type Severity Reaction Status Date / Time No Known Allergies Allergy Verified 06/15/23 18:57 Physical Exam Vitals: Vital Signs Temp Pulse Resp BP Pulse Ox 06/16/23 20:00 17 06/16/23 19:33 97.7 F 67 16 105/62 94 L 06/16/23 16:00 98.3 F 56 L 17 96/58 96 06/16/23 13:34 51 L 17 06/16/23 13:11 51 L 17 06/16/23 11:50 98.1 F 51 L 17 115/70 98 06/16/23 11:44 97 06/16/23 08:30 98.0 F 61 17 111/55 95 06/16/23 08:00 61 17 06/16/23 04:00 96.4 F L 55 L 16 92/53 94 L 06/16/23 02:00 99 16 06/16/23 00:00 99.1 F 99 16 104/68 98 Intake and Output 06/16/23 06/16/23 06/16/23 06:59 14:59 22:59 Intake Total 760 180 Balance 760 180 Intake: Oral 760 180 Other: Voiding Method Toilet Toilet Toilet Urinal Urinal Urinal # Voids 2 3 Weight 86.183 kg Vitals reviewed General: well developed, well nourished NAD HEENT: Normocephalic, atraumatic, mucus membranes moist Neck: supple, no JVD, no thyromegaly CV: Regular rate and rhythm, pulses 2+ Lungs: Normal effort. No wheezes or rales Abd: soft, nontender, bowel sounds present Neuro: Alert and oriented x3, no focal deficit Skin: warm and dry Results CBC & Chem 7: 06/15/23 13:35 06/15/23 13:35 Labs: Abnormal Lab Results - Last 24 Hours (Table) 06/16/23 Range/Units 07:00 Triglycerides 257.00 H (0.00-149.00) mg/dL VLDL Cholesterol, Calc 51.40 H (5.00-40.00) mg/dL HDL Cholesterol 38.70 L (40.00-60.00) mg/dL Thrombosis Risk Factor Assmnt - Choose All That Apply Any of the Below Risk Factors Present?: No Assessment and Plan Plan: NSTEMI. S/p PCI. Continue with lipitor, metoprolol, brilinta. Cardiology following pt
[2023-06-17] MEDS: SODIUM CHLORIDE 0.9% 1,000 ML in EMPTY BAG 1 BAG IV SCH (06:37)
[2023-06-17 07:41] VITALS: BP 118/76; PULSE 58; RESP 18; TEMP 97.6
[2023-06-17] MEDS: ASPIRIN 81 MG PO SCH (07:50)
[2023-06-17] MEDS: TICAGRELOR 90 MG TAB PO SCH (07:50)
[2023-06-17] MEDS: METOPROLOL SUCCINATE (ER) 25 MG TAB.ER.24H PO SCH (07:50)
--- NOTE | 2023-06-17 11:36 | P.PN ---
Subjective HISTORY OF PRESENT ILLNESS: This is a pleasant 58-year-old with past medical history significant for tobacco abuse and prostate cancer in remission. He has never had any cardiac history in the past. He does not follow with a outgoing inspector. He did have a brief episode of mild chest pain approximately 3 days ago and went away however when he was hunting and he started to feel substernal chest pressure and pain radiating in his job with associated diaphoresis and shortness breath and therefore decided to go to the emergency department. EKG shows sinus rhythm with ST depressions in the inferior and lateral leads. He has never had anything similar to this in the past. He does smoke, no alcohol, no illicit drugs, family history of mother with recent stent 1 month ago. He was given nitroglycerin with some improvement and placed on nitro drip however chest pain still had a 2 out of 10. Blood work shows troponin 1.4, 3.9 06/16/2023 Patient is status post cardiac catheterization with Dr. Preciado. Cardiac catheterization revealing mild CAD of the left system and 100% distal RCA stenosis. Normal left-sided filling pressures. Patient underwent PCI of the RCA. Patient examined this morning at the bedside. Patient denies any chest pain or pressure. He denies any shortness of breath. Vital signs are stable. 06/17/2023 Patient examined this morning at the bedside.patient denies chest pain or pressure. He denies shortness of breath. Vital signs are stable. Echocardiogram completed revealing ejection fraction 45-50%, inferior and inferior septal hypokinesis, mild MR, and mild TR. PHYSICAL EXAM: VITAL SIGNS: Reviewed. GENERAL: Well-developed in no acute distress. NECK: Supple. No JVD or thyromegaly LUNGS: Respirations even and unlabored. Lungs essentially clear to auscultation bilaterally. HEART: Regular rate and rhythm. S1 and S2 heard. EXTREMITIES: Normal range of motion. No clubbing or cyanosis. Peripheral pulses intact. No lower extremity edema ASSESSMENT: 1. Non-STEMI, status post PCI of RCA 2. Tobacco abuse 3. Family history of CAD PLAN: Continue dual antiplatelet therapy Continue high intensity statin Add losartan 12.5 mg at night Patient is stable for discharge home this afternoon from a cardiac standpoint Nurse practitioner note has been reviewed by physician. Signing provider agrees with the documented findings, assessment, and plan of care. Objective - Vital Signs Vital signs: Vital Signs Temp 97.6 F 06/17/23 07:28 Pulse 58 L 06/17/23 07:28 Resp 18 06/17/23 07:28 BP 118/76 06/17/23 07:28 Pulse Ox 98 06/17/23 07:28 FiO2 Intake & Output 06/16/23 06/17/23 06/17/23 18:59 06:59 18:59 Intake Total 940 240 Balance 940 240 Weight 86.183 kg Intake: Oral 940 240 Other: Voiding Method Toilet Toilet Toilet Urinal Urinal Urinal # Voids 3 2 - Labs CBC & Chem 7: 06/15/23 13:35 06/15/23 13:35 Labs: Abnormal Lab Results - Last 24 Hours (Table) 06/16/23 Range/Units 07:00 Triglycerides 257.00 H (0.00-149.00) mg/dL VLDL Cholesterol, Calc 51.40 H (5.00-40.00) mg/dL HDL Cholesterol 38.70 L (40.00-60.00) mg/dL
--- NOTE | 2023-06-17 14:10 | P.DS ---
Providers Date of admission: 06/15/23 15:20 Expected date of discharge: 06/17/23 Attending physician: Vaughn Rutledge MD Consults: 06/15/23 15:20 Consult Physician Urgent Consulting Provider: John Preciado Consult Reason/Comments: acs Do you want consulting provider notified?: Already Contacted 06/15/23 17:57 Consult Physician Routine Consulting Provider: [facility] Consult Reason/Comments: Post Interventional Patient Do you want consulting provider notified?: Already Contacted Primary care physician: Leslie Rutledge [facility] Course: Final Diagnoses: NSTEMI. S/p PC Hospital course:Arsalan Russo is a 58-year-old with past medical history significant for tobacco abuse and prostate cancer in remission who presented to the ED wirh worsening chest pain and shortness of breath. He states his symptoms initially started 3 days ago while he was hunting but went away, he subsequently started to feel substernal chest pressure and pain with associated diaphoresis and shortness breath. On presentation, EKG shows sinus rhythm with ST depressions in the inferior and lateral leads. He has never had anything similar to this in the past. He notes family history of CAD in mother. Pt taken to radiographer cardiac catheterization and underwent angiography showing 100% RCA blockage and deployment of stent. On evaluation he feeling well today, no chest pain, shortness of breath, pain around cath site. Continues on Lipitor, metoprolol, and general antiplatelet therapy. Jeovanny/ARB contraindicated currently due to borderline soft BPs-reevaluate outpatient in clinic.Significant clinical improvement. Denies chest pain, palpitations or shortness of breath. Ambulating, tolerated exertion well. Patient will be discharged home today in a stable condition with guarded prognosis pending final DC recommendations and clearance per cardiology. The impression and plan of care has been dictated as directed. : I performed a history and examination of this patient, discussed the same with the dictator. I agree with the dictator's note ,documented as a scribe. Any additional findings or plans will be noted. Patient Condition at Discharge: Stable Plan - Discharge Summary Discharge Rx Participant: No New Discharge Prescriptions: New Ticagrelor [Brilinta] 90 mg PO BID #60 tab Aspirin 81 mg PO DAILY tab Atorvastatin [Lipitor] 80 mg PO HS #30 tab Metoprolol Succinate (ER) [Toprol XL] 12.5 mg PO DAILY #30 tab Continue Ergocalciferol (Vitamin D2) [Drisdol (50,000 Iu)] 1,250 mcg PO DIRECTED Discharge Medication List Ergocalciferol (Vitamin D2) [Drisdol (50,000 Iu)] 1,250 mcg PO DIRECTED 06/15/23 [History] Aspirin 81 mg PO DAILY tab 06/17/23 [Rx] Atorvastatin [Lipitor] 80 mg PO HS #30 tab 06/17/23 [Rx] Metoprolol Succinate (ER) [Toprol XL] 12.5 mg PO DAILY #30 tab 06/17/23 [Rx] Ticagrelor [Brilinta] 90 mg PO BID #60 tab 06/17/23 [Rx] Follow up Appointment(s)/Referral(s): John Preciado DO [STAFF PHYSICIAN] - 1 Week (office will call you with a date and time. ) Leslie Rutledge DO [Primary Care Provider] - 3 Days Patient Instructions/Handouts: Heart Catheterization (DC) Discharge Disposition: HOME SELF-CARE
[2023-06-17] MEDS ORDERED: LOSARTAN 25 MG TAB PO SCH (21:00)
== END 2023-06-17 10:50 | disposition home or self-care (01) | DRG 322 ==
LOC: EC 13:00 → 3SCARD 15:20
PROVIDERS: ADMIT Family Medicine; ATTEND Family Medicine
PROC: 027034Z Dilation of Coronary Artery, One Artery with Drug-eluting Intraluminal Device, Percutaneous Approach (ICD-10-PCS; principal; 2023-06-15 16:42)
PROC: 02C03ZZ Extirpation of Matter from Coronary Artery, One Artery, Percutaneous Approach (ICD-10-PCS; 2023-06-15 16:42)
PROC: 4A023N7 Measurement of Cardiac Sampling and Pressure, Left Heart, Percutaneous Approach (ICD-10-PCS; 2023-06-15 16:42)
PROC: B2111ZZ Fluoroscopy of Multiple Coronary Arteries using Low Osmolar Contrast (ICD-10-PCS; 2023-06-15 16:42)
PROC: B240ZZ3 Ultrasonography of Single Coronary Artery, Intravascular (ICD-10-PCS; 2023-06-15 16:42)
DX: I21.4 Non-ST elevation (NSTEMI) myocardial infarction (principal); I10 Essential (primary) hypertension; I25.110 Atherosclerotic heart disease of native coronary artery with unstable angina pectoris; K21.9 Gastro-esophageal reflux disease without esophagitis; I08.1 Rheumatic disorders of both mitral and tricuspid valves; Z85.46 Personal history of malignant neoplasm of prostate; Z82.49 Family history of ischemic heart disease and other diseases of the circulatory system; Z98.61 Coronary angioplasty status
CPT/HCPCS: 36415; 71046; 76937; 80053; 80061; 83735; 84484; 85025; 85610; 85730; 92973; 92978; 93005; 93306; 93458; 94760; 96365; 96368; 99291

== ENCOUNTER → 2023-12-31 | Outpatient (CLI) | payer BC, OTHER ==
--- NOTE | 2023-12-31 16:32 | CTL ---
EXAMINATION TYPE: CT Low Dose Lung DATE OF EXAM ORDERED: 12/31/2023 COMPARISON: None HISTORY: . Low Dose CT Lung Screening CT DLP: 78.[address] CTDI: 2.4 mGy IV CONTRAST USED: None. SCREENING VISIT: First visit TECHNIQUE: Low dose computed tomography scan was performed through the chest at 1 millimeter thick se ctions and reconstructed images in the coronal plane at [address] DIAGNOSTIC QUALITY: Satisfactory FINDINGS: LUNG NODULES: Calcified granuloma right upper lobe. LUNGS: COPD: Severity: None Fibrosis: Severity:None Lymph nodes: None Other findings: None RIGHT PLEURAL SPACE: Effusion: None Calcification: None Thickening: None Pneumothorax: None LEFT PLEURAL SPACE: Effusion: None Calcification: None Thickening: None Pneumothorax: None HEART: Heart Size: Mildly enlarged Coronary calcification: Mild Pericardial effusion: None OTHER FINDINGS: Upper abdomen: No significant abnormality Bony thorax: Degenerative changes Supraclavicular region: No significant abnormalityOther: No significant abnormalityI IMPRESSION: Evidence of old granulomatous disease. No concerning solid nodules greater than [address] CHEST RECOMMENDATION: Follow-up screening in one year CT LUNG RAD: LUNG RAD CATEGORY 2 benign appearance and behavior
== END | disposition home or self-care (01) ==
LOC: RADCTMAIN 15:39
PROVIDERS: ATTEND Family Medicine
DX: Z12.2 Encounter for screening for malignant neoplasm of respiratory organs (principal); F17.210 Nicotine dependence, cigarettes, uncomplicated
CPT/HCPCS: 71271